=== PATIENT | male | born 1955 | race Two or more races ===

== ENCOUNTER 2022-05-09 11:24 | Emergency (ER) | payer OTHER ==
[~2022-05-09] VITALS: Ht 162.6 cm; Wt 68.8 kg
[2022-05-09] MEDS ORDERED: OXYCODONE W/ ACETAMINOPHEN 5/325MG TABLET PO ONE (13:30)
[2022-05-09] MEDS ORDERED: PERCOT PO ×2 (13:36→13:37)
[2022-05-09 15:46] VITALS: BP 138/81
== END 2022-05-09 15:51 | disposition home or self-care (01) ==
LOC: ER 11:24 → EDBD 11:24 → ER 15:47
DX: S22.42XA Multiple fractures of ribs, left side, initial encounter for closed fracture (principal); W18.09XA Striking against other object with subsequent fall, initial encounter; Y93.89 Activity, other specified; Y92.89 Other specified places as the place of occurrence of the external cause; Y99.8 Other external cause status
CPT/HCPCS: 71101